=== PATIENT | female | born 1965 | race Caucasian/White ===

== ENCOUNTER 2016-03-05 16:24 | Emergency (ER) | payer BC ==
[2016-03-05 17:16] VITALS: BP 156/72
--- NOTE | 2016-03-05 17:37 | UC ---
Lower Extremity/Ankle HPI - HPI Summary HPI Summary: complaint of right foot pain approx 1 month ago hit her foot onto a door has been steadily getting worse since she bumped it husrts to put weight on her foot today pain has been worse after stepping on her foot at work today ambulating makes pain worse aching pian that starts on lateral side of foot that radiates into her ankle taking ibuprofen for pain without much relief - History of Current Complaint Chief Complaint: UCLowerExtremity Stated Complaint: RIGHT FOOT INJURY Time Seen by Provider: 03/05/16 17:29 Hx Last Menstrual Period: 3 yrs - Allergies/Home Medications Allergies/Adverse Reactions: Allergies Allergy/AdvReac Type Severity Reaction Status Date / Time Lisinopril Allergy Severe Hives Verified 03/05/16 17:16 Sulfa Drugs Allergy Severe Hives Verified 03/05/16 17:16 Home Medications: Home Medications Diphenhydramine-Acetaminophen [Tylenol Pm Extra Strength 500-25 mg] 4 tab PO QPM PRN 03/05/16 [History Confirmed 03/05/16] Famotidine TAB* [Pepcid TAB*] 20 mg PO DAILY 03/05/16 [History Confirmed ] Ibuprofen TAB* [Motrin TAB* 800 MG] 800 mg PO ONCE PRN 03/05/16 [History Confirmed 03/05/16] PMH/Surg Hx/FS Hx/Imm Hx Previously Healthy: Yes Endocrine History Of: Comment Only: Diabetes - gestational Cardiovascular History Of: Reports: Hypertension Respiratory History Of: Reports: Asthma - as child - Surgical History Surgical History: Yes Surgery Procedure, Year, and Place: x2, ganglionectomy, right foot with screw surgery 1995, D&C. Uterine ablation 2012, left and right shoulder surgery (Right shoulder was 09/2015 [facility]) - Family History Known Family History: Positive: Hypertension, Diabetes Negative: Cardiac Disease - Social History Occupation: Employed Full-time Lives: With Family Alcohol Use: None Substance Use Type: None Smoking Status (MU): Former Smoker When Did the Patient Quit Smoking/Using Tobacco: 6 months ago Household Exposure Type: Cigarettes Review of Systems Constitutional: Negative Skin: Negative Eyes: Negative ENT: Negative Respiratory: Negative Cardiovascular: Negative Gastrointestinal: Negative Genitourinary: Negative Motor: Negative Neurovascular: Negative Musculoskeletal: Other: - right foot pain Neurological: Negative Psychological: Negative All Other Systems Reviewed And Are Negative: Yes Physical Exam Triage Information Reviewed: Yes Appearance: No Pain Distress Vital Signs: Initial Vital Signs Temp 99.1 F 03/05/16 17:08 Pulse 90 03/05/16 17:08 Resp 22 03/05/16 17:08 BP 156/72 03/05/16 17:08 Vital Signs Reviewed: Yes Eyes: Positive: Conjunctiva Clear ENT: Positive: Normal ENT inspection Neck: Positive: No Lymphadenopathy Respiratory: Positive: Lungs clear, Normal breath sounds, No respiratory distress Cardiovascular: Positive: RRR, No Murmur, Pulses Normal Abdomen Description: Positive: Nontender, Soft Bowel Sounds: Positive: Present Musculoskeletal: Positive: Other: - RLE- 5th metatarsal tenderness 1st 2nd 3rd deformed toes full ROM no edema or erythema Neurological: Positive: Alert Psychological Exam: Normal Skin Exam: Normal Lower Extremity Course/Dx - Differential Dx/Diagnosis Differential Diagnosis/HQI/PQRI: Fracture (Closed), Sprain, Strain Provider Diagnoses: hallux valgus deformity right foot Discharge - Discharge Plan Condition: Stable Disposition: HOME Patient Education Materials: Bunion (ED) Referrals: Dwaine Sofia DPM [Doctor of Podiatric Medicine] - Angel Callaway MD [Medical Doctor] - Logan George DO [Primary Care Provider] - Additional Instructions: please call podiatry for treatment of your bunion, hallus valgus deformity Increase fluids and rest Take acetaminophen for fever or pain Please review your discharge instructions. If your symptoms do not improve please call your primary care provider or return to urgent care.
--- NOTE | 2016-03-05 18:16 | RAD ---
Indication: RIGHT foot pain since injury January 19, 2016. Previous bunionectomy. Comparison: August 12, 2011 Technique: AP and lateral views RIGHT foot. Report: Negative for fracture. Approximate 50 degrees apex medial hallux valgus deformity at the first metatarsal phalangeal joint. 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 Unchanged solitary fixation screw at prior osteotomy site at the proximal first metatarsal. Soft tissue swelling without significant focality. IMPRESSION: Negative for fracture. Severe hallux valgus deformity. Associated first metatarsal phalangeal joint osteoarthritis with interval worsening. Nonfocal soft tissue swelling.
== END 2016-03-05 18:51 | disposition home or self-care (01) ==
LOC: UCCORT 16:24
DX: M20.11 Hallux valgus (acquired), right foot (principal); Z88.2 Allergy status to sulfonamides; Z87.891 Personal history of nicotine dependence
CPT/HCPCS: 99211; G0463

== ENCOUNTER 2016-07-09 17:06 | Emergency (ER) | payer BC, OTHER ==
--- NOTE | 2016-07-09 18:54 | UC ---
Knee Pain HPI - HPI Summary HPI Summary: Dawit Montes knee twisted and she fell onto kneecap. Denies hx of sx, no sensation of instability. Has bruising, swelling, and tenderness. - History of Current Complaint Chief Complaint: UCLowerExtremity Stated Complaint: KNEE INJURY Time Seen by Provider: 07/09/16 18:49 Hx Obtained From: Patient Hx Last Menstrual Period: 3 yrs ?: No Onset/Duration: Sudden Onset Severity Initially: Moderate Severity Currently: Moderate Character: Dull, Aching, Stiffness Alleviating Factor(s): Rest Associated Signs And Symptoms: Positive: Swelling, Bruising Able to Bear Weight: Yes - Allergies/Home Medications Allergies/Adverse Reactions: Allergies Allergy/AdvReac Type Severity Reaction Status Date / Time Lisinopril Allergy Severe Hives Verified 03/05/16 17:16 Sulfa Drugs Allergy Severe Hives Verified 03/05/16 17:16 Home Medications: Home Medications Omeprazole [Prilosec] 07/09/16 [History] PMH/Surg Hx/FS Hx/Imm Hx Endocrine History Of: Comment Only: Diabetes - gestational Cardiovascular History Of: Reports: Hypertension Respiratory History Of: Reports: Asthma - as child - Surgical History Surgical History: Yes Surgery Procedure, Year, and Place: x2, ganglionectomy, right foot with screw surgery 1995, D&C. Uterine ablation 2012, left and right shoulder surgery (Right shoulder was 09/2015 [facility]) - Family History Known Family History: Positive: Hypertension, Diabetes Negative: Cardiac Disease - Social History Lives: With Family Alcohol Use: None Substance Use Type: None Smoking Status (MU): Former Smoker When Did the Patient Quit Smoking/Using Tobacco: 6 months ago Household Exposure Type: Cigarettes Review of Systems Constitutional: Negative Skin: Bruising, Other - abrasion R knee Eyes: Negative ENT: Negative Respiratory: Negative Cardiovascular: Negative Gastrointestinal: Negative Genitourinary: Negative Motor: Negative Neurovascular: Negative Musculoskeletal: Negative Neurological: Negative Psychological: Negative All Other Systems Reviewed And Are Negative: Yes Physical Exam Triage Information Reviewed: Yes Appearance: Well-Appearing, Obese Vital Signs: Initial Vital Signs Temp 98.1 F 07/09/16 17:43 Pulse 75 07/09/16 17:43 Resp 18 07/09/16 17:43 BP 131/69 07/09/16 17:43 Pulse Ox 100 07/09/16 17:43 Vital Signs Reviewed: Yes Eye Exam: Normal Eyes: Positive: Conjunctiva Clear ENT Exam: Normal ENT: Positive: Normal ENT inspection, Hearing grossly normal, Pharynx normal, TMs normal Dental Exam: Normal Neck exam: Normal Neck: Positive: Supple, Nontender, No Lymphadenopathy Respiratory Exam: Normal Respiratory: Positive: Chest non-tender, Lungs clear, Normal breath sounds, No respiratory distress, No accessory muscle use Cardiovascular Exam: Normal Cardiovascular: Positive: RRR, No Murmur Musculoskeletal Exam: Other - exam limited due to pain and obesity Musculoskeletal: Positive: ROM Limited @ - R knee, Other: - bruising on R medial and lateral knee Neurological Exam: Normal Psychological Exam: Normal Skin Exam: Other Knee Pain Course/Dx - Differential Dx/Diagnosis Provider Diagnoses: R knee sprain. R knee contusions/hematomas. elevated blood pressure due to discomfort Discharge - Discharge Plan Condition: Stable Disposition: HOME Patient Education Materials: Knee Sprain (ED), Contusion in Adults (ED) Forms: *Work Release Referrals: Logan George DO [Primary Care Provider] - Marcelo George MD [Medical Doctor] - 1 Week Additional Instructions: I recommend you see an orthopedist in 7-10 days for a recheck of your knee. If you are not improving, you may need further imaging or physical therapy. If you start having the sensation of instability in your knee, please come back here right away.
--- NOTE | 2016-07-09 19:22 | RAD ---
INDICATION: Right knee pain after a fall COMPARISON: None TECHNIQUE: 4 view radiograph of the right knee. FINDINGS: The visualized bones are well-corticated and properly aligned. Degenerative changes include mild narrowing of the medial compartment with marginal osteophyte formation. There is mild narrowing of the patellofemoral joint. There is a small joint effusion. There is no acute fracture, dislocation or other focal bony abnormality. IMPRESSION: Degenerative changes as described above with a small joint effusion. If the patient's symptoms persist, follow-up imaging is recommended.
[2016-07-09 19:23] VITALS: BP 141/83
== END 2016-07-09 19:46 | disposition home or self-care (01) ==
LOC: UCEAST 17:06
DX: S83.91XA Sprain of unspecified site of right knee, initial encounter (principal); S80.01XA Contusion of right knee, initial encounter; W18.39XA Other fall on same level, initial encounter; I10 Essential (primary) hypertension; Z87.891 Personal history of nicotine dependence; Z88.2 Allergy status to sulfonamides
CPT/HCPCS: 99212; G0463

== ENCOUNTER 2017-01-13 11:44 | Emergency (ER) | payer OTHER ==
[2017-01-13 13:48] VITALS: BP 161/81
--- NOTE | 2017-01-13 14:43 | UC ---
Throat Pain/Nasal Kayode HPI - HPI Summary HPI Summary: fever, cough, sore throat, since last night. - History of Current Complaint Chief Complaint: UCGeneralIllness Stated Complaint: NAUSEA,DIZZY,ST,PUENTE Time Seen by Provider: 01/13/17 14:37 Hx Obtained From: Patient Hx Last Menstrual Period: ablation ?: No Onset/Duration: Sudden Onset, Lasting Hours Severity: Moderate Associated Signs & Symptoms: Positive: Dysphagia, Fever - Allergies/Home Medications Allergies/Adverse Reactions: Allergies Allergy/AdvReac Type Severity Reaction Status Date / Time Lisinopril Allergy Severe Hives Verified 01/13/17 13:48 Sulfa Drugs Allergy Severe Hives Verified 01/13/17 13:48 Home Medications: Home Medications Valsartan TAB* [Diovan TAB*] 80 mg PO DAILY 01/13/17 [History Confirmed 01/13/17 ] PMH/Surg Hx/FS Hx/Imm Hx Previously Healthy: Yes - Surgical History Surgical History: Yes Surgery Procedure, Year, and Place: x2, ganglionectomy, right foot with screw surgery 1995, D&C. Uterine ablation 2012, left and right shoulder surgery (Right shoulder was 09/2015 [facility]) - Family History Known Family History: Positive: Hypertension, Diabetes Negative: Cardiac Disease - Social History Alcohol Use: None Substance Use Type: None Smoking Status (MU): Former Smoker When Did the Patient Quit Smoking/Using Tobacco: 6 months ago Household Exposure Type: Cigarettes - Immunization History Most Recent Influenza Vaccination: no Review of Systems Constitutional: Fever Skin: Negative Eyes: Negative ENT: Sore Throat Respiratory: Negative Cardiovascular: Negative Gastrointestinal: Negative Genitourinary: Negative Motor: Negative Neurovascular: Negative Musculoskeletal: Negative Neurological: Headache Psychological: Negative All Other Systems Reviewed And Are Negative: Yes Physical Exam Triage Information Reviewed: Yes Appearance: Well-Nourished, Ill-Appearing, Pain Distress Vital Signs: Initial Vital Signs Temp 100.9 F 01/13/17 13:44 Pulse 113 01/13/17 13:44 Resp 18 01/13/17 13:44 BP 161/81 01/13/17 13:44 Pulse Ox 98 01/13/17 13:44 Vital Signs Reviewed: Yes Eye Exam: Normal ENT: Positive: Pharyngeal erythema, Tonsillar swelling, Tonsillar exudate Dental Exam: Normal Neck exam: Normal Neck: Positive: Supple, No Lymphadenopathy Respiratory Exam: Normal Respiratory: Positive: Chest non-tender, Lungs clear, Normal breath sounds Cardiovascular: Positive: No Murmur, Pulses Normal, Tachycardia Abdominal Exam: Normal Abdomen Description: Positive: Nontender, No Organomegaly, Soft Bowel Sounds: Positive: Present Musculoskeletal Exam: Normal Musculoskeletal: Positive: Strength Intact, ROM Intact, No Edema Neurological Exam: Normal Neurological: Positive: Alert, Muscle Tone Normal Psychological Exam: Normal Skin Exam: Normal Throat Pain/Nasal Course/Dx - Course Course Of Treatment: hx obtained, exam performed ,meds reviewed, treated for strep. - Differential Dx/Diagnosis Differential Diagnosis/HQI/PQRI: Pharyngitis, Sinusitis Provider Diagnoses: strep pharyngitis Discharge - Discharge Plan Condition: Stable Disposition: HOME Patient Education Materials: Strep Throat (ED) Forms: *Work Release Referrals: Logan George DO [Primary Care Provider] - Additional Instructions: 1. take the medication as prescribed. 2. Increase fluid intake and get plenty of rest.
== END 2017-01-13 14:48 | disposition home or self-care (01) ==
LOC: UCCORT 11:44
DX: J02.0 Streptococcal pharyngitis (principal); Z88.2 Allergy status to sulfonamides; Z87.891 Personal history of nicotine dependence
CPT/HCPCS: 87651; 99212; G0463

== ENCOUNTER 2017-06-14 09:49 | Emergency (ER) | payer OTHER ==
[2017-06-14 10:17] VITALS: BP 159/77
[2017-06-14] MEDS ORDERED: Ibuprofen TAB* 400 MG PO ONE (10:57)
--- NOTE | 2017-06-14 11:16 | RAD ---
HISTORY: Left heel pain COMPARISONS: June 30, 2015 VIEWS: 3, Frontal, lateral, and oblique views of the left foot FINDINGS: BONE DENSITY: Normal. BONES: There is no displaced fracture. JOINTS: There is osteoarthritis of the first MTP joint. ALIGNMENT: There is hallux valgus. SOFT TISSUES: Unremarkable. OTHER FINDINGS: The appearance is similar to June 30, 2015. IMPRESSION: HALLUX VALGUS WITH OSTEOARTHRITIS OF THE FIRST MTP JOINT. NO ACUTE OSSEOUS INJURY. IF SYMPTOMS PERSIST, RECOMMEND REPEAT IMAGING
--- NOTE | 2017-06-14 11:27 | UC ---
Lower Extremity/Ankle HPI - HPI Summary HPI Summary: 52 year old female with history of HTN and chronic bilateral leg edema here for left foot pain. Reports history of plantar fasciitis two months ago, resolved with exercises. Now the pain is different because pain is worse when she walks instead of when she initiates the first step like plantar fasciitis. Denies any fall or trauma. Took tylenol with partial relief. - History of Current Complaint Chief Complaint: UCLowerExtremity Stated Complaint: (L) FOOT PAIN Time Seen by Provider: 06/14/17 10:39 Hx Obtained From: Patient Hx Last Menstrual Period: hystoscopathy with ablasion Onset/Duration: Sudden Onset Severity Initially: Mild Pain Intensity: 7 Aggravating Factor(s): Ambulation Alleviating Factor(s): Rest - Allergies/Home Medications Allergies/Adverse Reactions: Allergies Allergy/AdvReac Type Severity Reaction Status Date / Time lisinopril Allergy Severe Hives Verified 06/14/17 10:19 Sulfa (Sulfonamide Allergy Intermediate Hives Verified 06/14/17 10:19 Antibiotics) PMH/Surg Hx/FS Hx/Imm Hx Cardiovascular History: Hypertension - Surgical History Surgical History: Yes Surgery Procedure, Year, and Place: x2, ganglionectomy, right foot with screw surgery 1995, D&C. Uterine ablation 2012, left and right shoulder surgery (Right shoulder was 09/2015 [facility]) - Family History Known Family History: Positive: Hypertension, Diabetes Negative: Cardiac Disease - Social History Alcohol Use: None Substance Use Type: None Smoking Status (MU): Former Smoker When Did the Patient Quit Smoking/Using Tobacco: 6 months ago Household Exposure Type: Cigarettes - Immunization History Most Recent Influenza Vaccination: no Review of Systems Constitutional: Negative Skin: Negative Eyes: Negative ENT: Negative Respiratory: Negative Cardiovascular: Negative Gastrointestinal: Negative Genitourinary: Negative Motor: Negative Neurovascular: Negative Neurological: Negative Psychological: Negative All Other Systems Reviewed And Are Negative: Yes Physical Exam Triage Information Reviewed: Yes Appearance: Well-Appearing, No Pain Distress Vital Signs: Initial Vital Signs Temp 36.4 C 06/14/17 10:11 Pulse 98 06/14/17 10:11 Resp 18 06/14/17 10:11 BP 159/77 06/14/17 10:11 Pulse Ox 100 06/14/17 10:11 Vital Signs Reviewed: Yes Eye Exam: Normal Respiratory Exam: Normal Cardiovascular Exam: Normal Musculoskeletal Exam: Normal Musculoskeletal: Positive: Edema @ - non-pitting edema intact DP/PT Tenderness over heels with no abrasion or skin lesion Neurological Exam: Normal Psychological Exam: Normal Diagnostics - Radiology No standard instances Radiology Interpretation Completed By: Radiologist Lower Extremity Course/Dx - Course Course Of Treatment: Hard sole shoes given. XR negative - Differential Dx/Diagnosis Differential Diagnosis/HQI/PQRI: Arthritis, Sprain, Strain Provider Diagnoses: Left foot pain Discharge - Sign-Out/Discharge Documenting (check all that apply): Discharge/Admit/Transfer - Discharge Plan Condition: Good Disposition: HOME Prescriptions: Naproxen TAB* [Naprosyn 250 mg TAB*] 500 mg PO BID PRN #30 tab PRN Reason: Pain Patient Education Materials: Metatarsalgia (DC) Referrals: Zbigniew Solis DO [Primary Care Provider] - Additional Instructions: If you continue to have these symptoms after taking naproxen, please follow up with eligibility and occupancy interviewer. - Billing Disposition and Condition Condition: GOOD Disposition: HOME
== END 2017-06-14 11:59 | disposition home or self-care (01) ==
LOC: UCCORT 09:49
DX: M79.672 Pain in left foot (principal); M20.12 Hallux valgus (acquired), left foot; M19.072 Primary osteoarthritis, left ankle and foot; Z87.891 Personal history of nicotine dependence; Z88.2 Allergy status to sulfonamides; Z88.8 Allergy status to other drugs, medicaments and biological substances
CPT/HCPCS: 99213; A9270-GY; G0463

== ENCOUNTER 2020-12-13 05:48 | Inpatient (IN) ==
[2020-12-13] MEDS ORDERED: Lactated Ringers 1000 ml BAG 1,000 ML IV SCH (06:00)
[2020-12-13] MEDS ORDERED: Buffered Lidocaine 1% SYRIN 1 ml INTRADERM ONE (06:00)
[2020-12-13] MEDS ORDERED: Famotidine IV 10 MG/ML 2 ml VIAL (20 mg) IV ONE (06:00)
[2020-12-13] MEDS ORDERED: Heparin 5000 UNITS/ML 1 mL VIAL ONE (06:16)
[2020-12-13] MEDS ORDERED: ceFAZolin 1 GM ADVAN 1 GM ADDV.VIAL IVPB ONE (06:16)
[2020-12-13] MEDS ORDERED: ceFAZolin 2 GM in NS PREMIX 2 GM/100 ML BAG IVPB ONE (06:17)
[2020-12-13] MEDS ORDERED: Famotidine IV 10 MG/ML 2 ml VIAL (20 mg) ONE (06:17)
[2020-12-13] MEDS ORDERED: Rocuronium 50 mg VIAL 10 mg/ml 5 ml VIAL (50 mg) ONE ×2 (07:02→09:34)
[2020-12-13] MEDS ORDERED: Midazolam 2 mg/2 ml VIAL 1 mg/ml 2 ml VIAL (2 mg) ONE (07:02)
[2020-12-13] MEDS ORDERED: Lidocaine 2% PF 5 ML VIAL ONE (07:02)
[2020-12-13] MEDS ORDERED: fentaNYL 250 mcg/5 ml 50 MCG/ML 5 ml VIAL (250 MCG) ONE (07:02)
[2020-12-13] MEDS ORDERED: Propofol 10 MG/ML 20 ML BTL ONE (07:02)
[2020-12-13] MEDS ORDERED: Lidocaine 1% w EPI 1:200,000 SDV 30 ML VIAL ONE (07:23)
[2020-12-13] MEDS ORDERED: Methylene Blue 0.5 % 50 MG/10 ML AMP IV ONE (07:23)
[2020-12-13] MEDS ORDERED: Bupivacaine 0.5% SDV PF 30ML VIAL ONE (07:23)
[2020-12-13] MEDS ORDERED: Dexamethasone IV 4 MG/ML VIAL 1 ml VIAL ONE (08:25)
[2020-12-13] MEDS ORDERED: Ondansetron 4 mg VIAL 2 MG/ML 2 ml VIAL ONE (08:25)
[2020-12-13] MEDS ORDERED: HYDROmorphone 1 MG/1 ML SYRINGE ONE ×2 (09:11→11:42)
[2020-12-13] MEDS ORDERED: Labetalol IV 5 MG/ML 20 ml VIAL ONE (09:56)
[2020-12-13] MEDS ORDERED: Sugammadex 500 MG/5 ML 5 ml VIAL IV PUSH ONE (10:27)
[2020-12-13] MEDS ORDERED: Acetaminophen IV 1 GM/100ML 100 ML IV ONE (10:31)
[2020-12-13] MEDS ORDERED: DiMENhydriNATE IV 50 mg/ml 1 ml VIAL IV PUSH PRN (10:59)
[2020-12-13] MEDS ORDERED: Naloxone 0.4 mg VIAL 0.4 mg/ml 1 ml VIAL IV PRN (10:59)
[2020-12-13] MEDS ORDERED: fentaNYL 100 mcg/2 ml 50 MCG/ML VIAL ONE (11:03)
[2020-12-13] MEDS: fentaNYL 100 mcg/2 ml 50 MCG/ML VIAL IV PRN ×2 (11:04→11:10)
[2020-12-13] MEDS ORDERED: HYDROmorphone 0.5 MG/0.5 ML SYRINGE IV SLOW PU PRN (11:11)
[2020-12-13] MEDS ORDERED: Ondansetron 4 mg VIAL 2 MG/ML 2 ml VIAL IV PRN (11:11)
[2020-12-13] MEDS ORDERED: diPHENhydraMINE IV 50 MG/ML 1 ml VIAL (BENADRYL) SLOW PUSH PRN (11:11)
[2020-12-13] MEDS ORDERED: HYDROcodone/ACET. 7.5/325 LIQ 15 ML UDC PO PRN (11:11)
[2020-12-13] MEDS: HYDROmorphone 1 MG/1 ML SYRINGE IV SLOW PU PRN ×3 (11:44→21:00)
[2020-12-13] MEDS: Lactated Ringers 1000 ml BAG 1,000 ML IV SCH ×2 (12:49→20:58)
[2020-12-13] MEDS: Heparin 5000 UNITS/ML 1 mL VIAL SUBCUT SCH ×2 (14:47→21:00)
[2020-12-13] MEDS: Famotidine IV 10 MG/ML 2 ml VIAL (20 mg) IV SLOW PU SCH (21:01)
[2020-12-14] MEDS: HYDROmorphone 1 MG/1 ML SYRINGE IV SLOW PU PRN (03:42)
[2020-12-14] MEDS: Lactated Ringers 1000 ml BAG 1,000 ML IV SCH (03:42)
[2020-12-14] MEDS: Heparin 5000 UNITS/ML 1 mL VIAL SUBCUT SCH ×2 (06:44→13:22)
[2020-12-14] MEDS: Famotidine IV 10 MG/ML 2 ml VIAL (20 mg) IV SLOW PU SCH (09:03)
[2020-12-14] MEDS ORDERED: D5W 1/2 NS KCl 20 meq 1000 ml 1,000 ML IV SCH (11:00)
[2020-12-14 18:10] VITALS: BP 123/67
[2020-12-16] MEDS ORDERED: Scopolamine PATCH Remove NOTE PATCH OFF ONE (06:00)
== END 2020-12-14 19:00 | disposition home or self-care (01) | DRG 621 ==
LOC: AA 05:48 → SSU 12:42
PROVIDERS: ADMIT Surgery; ATTEND Surgery

== ENCOUNTER 2021-01-12 12:53 | Inpatient (IN) ==
[2021-01-12] MEDS ORDERED: Thiamine IV 100 MG, Folic Acid IV 1 MG, Multiple Vitamin IV ADULT 10 ML in NS 0.9% 1000... IVPB ONE (15:00)
[2021-01-12 15:03] LABS: ABS Basophils 0.1 10^3/ul (0-0.2); ABS Eosinophils 0.2 10^3/ul (0-0.6); ABS Monocytes 0.6 10^3/ul (0-0.8); ABS Neutrophils 8.3 10^3/ul (1.5-7.7); Eosinophil % 1.8 %; Hematocrit 32 % (35-47); Hemoglobin 10.6 g/dL (12.0-16.0); Lymphocyte % 17.9 %; Mean Corpuscular HGB Conc 33 g/dL (31-36); Mean Corpuscular Hemoglobin 28 pg (27-31); Mean Corpuscular Volume 84 fL (80-97); Mean Platelet Volume 8.1 fL (7.4-10.4); Platelet Count 279 10^3/uL (150-450); Red Blood Count 3.82 10^6 /uL (3.70-4.87); Red Cell Distribution Width 15 % (10-15); White Blood Count 11.2 10^3/uL (3.5-10.8)
[2021-01-12 15:22] LABS: ALT 15 U/L (7-52); AST 15 U/L (13-39); Albumin 3.9 g/dL (3.2-5.2); Albumin/Globulin Ratio 1.3 (1-3); Alkaline Phosphatase 91 U/L (35-149); Anion Gap 10 mmol/L (2-11); Blood Urea Nitrogen 26 mg/dL (6-24); C Reactive Protein 22.86 mg/L (<8.01); CO2 Carbon Dioxide 25 mmol/L (22-32); Calcium 8.7 mg/dL (8.6-10.3); Chloride 104 mmol/L (101-111); Glucose 92 mg/dL (70-100); Lipase < 10 U/L (11.0-82.0); Potassium 3.9 mmol/L (3.5-5.0); Sodium 139 mmol/L (135-145); Total Protein 6.9 g/dL (6.4-8.9); eGFR CKD-EPI 106.8 (>60)
[2021-01-12] MEDS ORDERED: Iohexol 300 (CONTRAST) 10 ML SDV IV ONE (16:06)
[2021-01-12] MEDS ORDERED: Pantoprazole VIAL 40 MG VIAL IV ONE (18:42)
[2021-01-12] MEDS ORDERED: HYDROmorphone 1 MG/1 ML SYRINGE IV SLOW PU PRN (20:01)
[2021-01-12] MEDS ORDERED: Ondansetron 4 mg VIAL 2 MG/ML 2 ml VIAL IV PRN (20:01)
[2021-01-12 23:52] LABS: Hematocrit 27 % (35-47); Hemoglobin 9.1 g/dL (12.0-16.0)
[2021-01-13] MEDS: Lactated Ringers 1000 ml BAG 1,000 ML IV SCH ×4 (00:07→21:20)
[2021-01-13] MEDS: Pantoprazole 80 mg in NS BAG 80 MG/250 ML BAG IV SCH ×2 (04:24→05:57)
[2021-01-13] MEDS ORDERED: Pantoprazole 80 mg in NS BAG 80 MG/250 ML BAG IV SCH (05:00)
[2021-01-13 06:06] LABS: ABS Eosinophils 0.3 10^3/ul (0-0.6); ABS Lymphocytes 1.7 10^3/ul (1.0-4.8); ABS Monocytes 0.6 10^3/ul (0-0.8); ABS Neutrophils 4.7 10^3/ul (1.5-7.7); Eosinophil % 3.7 %; Hematocrit 25 % (35-47); Hemoglobin 8.3 g/dL (12.0-16.0); Mean Corpuscular HGB Conc 33 g/dL (31-36); Mean Corpuscular Hemoglobin 28 pg (27-31); Mean Corpuscular Volume 84 fL (80-97); Mean Platelet Volume 7.8 fL (7.4-10.4); Platelet Count 218 10^3/uL (150-450); Red Blood Count 2.97 10^6 /uL (3.70-4.87); Red Cell Distribution Width 15 % (10-15); White Blood Count 7.2 10^3/uL (3.5-10.8)
[2021-01-13 06:25] LABS: Calcium 8.1 mg/dL (8.6-10.3); Potassium 3.6 mmol/L (3.5-5.0); eGFR CKD-EPI 110.2 (>60)
[2021-01-13] MEDS ORDERED: Propofol 10 MG/ML 20 ML BTL ONE (11:26)
[2021-01-13] MEDS ORDERED: Lidocaine 2% PF 5 ML VIAL ONE (11:26)
[2021-01-13] MEDS ORDERED: Midazolam 2 mg/2 ml VIAL 1 mg/ml 2 ml VIAL (2 mg) ONE ×2 (11:36→11:37)
[2021-01-13 17:41] LABS: Hematocrit 25 % (35-47); Hemoglobin 8.4 g/dL (12.0-16.0)
[2021-01-13] MEDS: Pantoprazole VIAL 40 MG VIAL IV SCH (18:34)
[2021-01-14 05:40] LABS: ABS Eosinophils 0.4 10^3/ul (0-0.6); ABS Lymphocytes 1.8 10^3/ul (1.0-4.8); ABS Monocytes 0.5 10^3/ul (0-0.8); ABS Neutrophils 3.6 10^3/ul (1.5-7.7); Hematocrit 25 % (35-47); Hemoglobin 8.4 g/dL (12.0-16.0); Lymphocyte % 28.1 %; Mean Corpuscular HGB Conc 33 g/dL (31-36); Mean Corpuscular Hemoglobin 28 pg (27-31); Mean Corpuscular Volume 84 fL (80-97); Platelet Count 214 10^3/uL (150-450); Red Blood Count 3.01 10^6 /uL (3.70-4.87); Red Cell Distribution Width 15 % (10-15); White Blood Count 6.2 10^3/uL (3.5-10.8)
[2021-01-14] MEDS: Lactated Ringers 1000 ml BAG 1,000 ML IV SCH (05:54)
[2021-01-14] MEDS: Pantoprazole VIAL 40 MG VIAL IV SCH ×2 (06:02→17:33)
[2021-01-14] MEDS ORDERED: Lactated Ringers 1000 ml BAG 1,000 ML IV SCH (09:57)
[2021-01-15 05:11] LABS: ABS Basophils 0.1 10^3/ul (0-0.2); ABS Eosinophils 0.4 10^3/ul (0-0.6); ABS Lymphocytes 2.2 10^3/ul (1.0-4.8); ABS Monocytes 0.5 10^3/ul (0-0.8); ABS Neutrophils 3.8 10^3/ul (1.5-7.7); Eosinophil % 5.6 %; Hematocrit 25 % (35-47); Hemoglobin 8.4 g/dL (12.0-16.0); Lymphocyte % 31.3 %; Mean Corpuscular HGB Conc 33 g/dL (31-36); Mean Corpuscular Hemoglobin 28 pg (27-31); Mean Corpuscular Volume 84 fL (80-97); Mean Platelet Volume 8.2 fL (7.4-10.4); Platelet Count 230 10^3/uL (150-450); Red Blood Count 2.97 10^6 /uL (3.70-4.87); Red Cell Distribution Width 15 % (10-15)
[2021-01-15] MEDS: Pantoprazole VIAL 40 MG VIAL IV SCH ×2 (05:41→17:52)
[2021-01-15] MEDS ORDERED: oxyCODONE 5 mg/5 ml ORAL.SOLN UDC PO PRN (09:06)
[2021-01-16] MEDS: Pantoprazole VIAL 40 MG VIAL IV SCH (06:11)
[2021-01-16 06:37] LABS: Hematocrit 26 % (35-47); Hemoglobin 8.8 g/dL (12.0-16.0); Mean Corpuscular HGB Conc 34 g/dL (31-36); Mean Corpuscular Hemoglobin 28 pg (27-31); Mean Corpuscular Volume 85 fL (80-97); Platelet Count 248 10^3/uL (150-450); Red Blood Count 3.09 10^6 /uL (3.70-4.87); Red Cell Distribution Width 15 % (10-15); White Blood Count 7.2 10^3/uL (3.5-10.8)
[2021-01-16] MEDS ORDERED: COVID-19 VACCINE, MRNA(PFIZER)/PF 30 MCG/0.3 ML IM ONE (11:09)
[2021-01-16 11:58] VITALS: BP 160/80
== END 2021-01-16 16:45 | disposition home or self-care (01) | DRG 379 ==
LOC: SSU 12:53 → ED 12:53 → SSU 22:22 → UNDODISOB 01-13 13:08
PROVIDERS: ADMIT Surgery; ATTEND Surgery
PROC: O.GIEGD (2021-01-13 11:55)

== ENCOUNTER 2022-09-28 09:34 | Observation (INO) ==
[2022-09-28 11:37] LABS: Urine Appearance Cloudy; Urine Bilirubin Negative (Negative); Urine Blood 2+ (Negative); Urine Color Yellow; Urine Glucose Negative (Negative); Urine Ketones Negative (Negative); Urine Nitrite Negative (Negative); Urine Protein Negative (Negative); Urine Specific Gravity 1.008 (1.002-1.030); Urine Urobilinogen Negative (Negative)
[2022-09-28 11:41] LABS: Urine Bacteria 1+ (Absent); Urine Red Blood Cell Trace(0-2/hpf) (Absent); Urine Squamous Epithelial Cell Present (Absent); Urine White Blood Cell 1+(6-10/hpf) (Absent)
[2022-09-28 12:29] LABS: ABS Basophils 0.1 10^3/uL (0.0-0.1); ABS Eosinophils 0.2 10^3/uL (0.0-0.5); ABS Lymphocytes 2.5 10^3/uL (1.0-4.8); ABS Monocytes 0.6 10^3/uL (0.0-0.9); ABS Neutrophils 6.6 10^3/uL (1.5-7.6); Eosinophil % 1.6 %; Hematocrit 39.8 % (35-45); Hemoglobin 13.5 g/dL (11.5-14.3); Lymphocyte % 25.5 %; Mean Corpuscular Hemoglobin 30.1 pg (27-33); Mean Corpuscular Volume 88.5 fL (80-97); Mean Platelet Volume 7.2 fL (7.5-11.2); Platelet Count 275 10^3/uL (150-450); Red Cell Distribution Width 13.7 % (12-17); White Blood Count 9.9 10^3/uL (3.8-11.8)
[2022-09-28 12:47] LABS: Albumin 4.4 g/dL (3.2-5.2); Albumin/Globulin Ratio 1.4 (1-3); C Reactive Protein 1.66 mg/L (<8.01); Calcium 9.5 mg/dL (8.6-10.3); Creatinine, Serum 0.56 mg/dL (0.51-0.95); Globulin 3.1 g/dL (2-4); Potassium 3.8 mmol/L (3.5-5.0); Total Bilirubin 0.9 mg/dL (0.2-1.0); Total Protein 7.5 g/dL (6.4-8.9); eGFR CKD-EPI 106.4 (>60)
[2022-09-28 12:53] LABS: HCG Pregnancy 11.24 mIU/mL
[2022-09-28] MEDS ORDERED: Iohexol 350 (CONTRAST) 500 ML MDV IV ONE (13:23)
[2022-09-28] MEDS: Polyethylene Glycol 3350 17 GM PACKET PO PRN (15:34)
[2022-09-28] MEDS ORDERED: Ondansetron 4 mg VIAL 2 MG/ML 2 ml VIAL IV PRN (18:36)
[2022-09-28] MEDS ORDERED: HYDROmorphone 0.5 MG/0.5 ML SYRINGE IV SLOW PU PRN (18:41)
[2022-09-28] MEDS ORDERED: cefTRIAXone 1 gm/50 mL D5W 1 GM/50 ML BAG IV ONE (18:42)
[2022-09-28] MEDS ORDERED: Lactated Ringers 1000 ml BAG 1,000 ML IV SCH (19:00)
[2022-09-29 06:35] LABS: ABS Basophils 0.1 10^3/uL (0.0-0.1); ABS Eosinophils 0.3 10^3/uL (0.0-0.5); ABS Lymphocytes 1.9 10^3/uL (1.0-4.8); ABS Monocytes 0.5 10^3/uL (0.0-0.9); ABS Neutrophils 3.5 10^3/uL (1.5-7.6); Eosinophil % 5.4 %; Hematocrit 36.4 % (35-45); Hemoglobin 12.5 g/dL (11.5-14.3); Lymphocyte % 29.8 %; Mean Corpuscular Hemoglobin 30.3 pg (27-33); Mean Corpuscular Hgb Conc 34.3 g/dL (31-36); Mean Corpuscular Volume 88.3 fL (80-97); Mean Platelet Volume 7.4 fL (7.5-11.2); Platelet Count 231 10^3/uL (150-450); Red Blood Count 4.12 10^6/uL (3.63-4.92); Red Cell Distribution Width 13.9 % (12-17); White Blood Count 6.3 10^3/uL (3.8-11.8)
[2022-09-29 06:49] LABS: Calcium 8.6 mg/dL (8.6-10.3); Creatinine, Serum 0.61 mg/dL (0.51-0.95); eGFR CKD-EPI 104.2 (>60)
[2022-09-29] MEDS: Polyethylene Glycol 3350 17 GM PACKET PO PRN (10:52)
[2022-09-29 14:54] VITALS: BP 139/66
== END 2022-09-29 17:33 | disposition short-term general hospital (02) ==
LOC: ED 09:34 → EDHOLD 09:34 → MEDTELE 20:24
PROVIDERS: ADMIT Surgery; ATTEND Surgery